=== PATIENT | male | born 1995 | race Two or more races ===

== ENCOUNTER 2024-03-05 04:44 | Emergency (ER) | payer MEDICAID, OTHER ==
[~2024-03-05] VITALS: Ht 177.8 cm; Wt 86.5 kg
[2024-03-05] MEDS ORDERED: NAP500T PO (05:30)
--- NOTE | 2024-03-05 05:35 | ED.PDOC ---
Musculoskeletal HPI Comments 28 year old male presents to ER with complaints of left hip pain x 5 months. Patient states he has been experiencing left hip pain x 5 months that got worse x 2 days prompting him to come to ER for further evaluation. He rates his current pain a 10/10 to left hip with radiation towards left groin. Notes he has been taking ibuprofen for his pain with slight relief and states he does have history of left hip fracture 1.5 years ago. Patient presents to ER in wheelchair and states he is able to bear minimum weight on left leg due to left hip pain. Reports he does have numbness/tingling to left hip and did have a recent left hip x-ray done at a local hospital that showed no acute findings. Denies fever, body aches, chills, night sweats, skin changes, recent falls/trauma, abdominal/pelvic pain, back pain, shortness of breath, changes in urination/bm or any further symptoms/complaints Chief Complaint: Lower Extremity Time Seen by MD: 04:51 Primary Care Provider: UNKNOWN Reviewed Notes: Nurses Notes, Medications, Allergies Allergies: Coded Allergies: NO KNOWN ALLERGIES (Unverified , 03/05/24) Home Meds Active Scripts Naproxen (NAPROSYN TABLET) 500 Mg Tb, 1 TAB PO BID PRN, #30 TAB 0 Refills Prov:BRANDON ASTORGA 03/05/24 Information Source: Patient Past Medical History PAST MEDICAL HISTORY: Asthma Past Medical History (Other): Left hip fracture Surgical History: Appendectomy Family History Family History: Unknown Social History Smoker: Non-Smoker Alcohol: Denies ETOH Use Drugs: Denies Drug Use Lives In: Home Constitutional: denies: chills, diaphoresis, fatigue, fever, malaise, sweats, weakness, others EENTM: denies: blurred vision, double vision, ear bleeding, ear discharge, ear drainage, ear pain, ear ringing, eye pain, eye redness, hearing loss, mouth pain, mouth swelling, nasal discharge, nose bleeding, nose congestion, nose pain, photophobia, tearing, throat pain, throat swelling, voice changes, others Respiratory: denies: cough, hemoptysis, orthopnea, SOB at rest, shortness of breath, SOB with excertion, stridor, wheezing, others Cardiovascular: denies: chest pain, dizzy spells, diaphoresis, Dyspnea on exertion, edema, irregular heart beat, left arm pain, lightheadedness, palpitations, PND, syncope, others Gastrointestinal: denies: abdomen distended, abdominal pain, blood streaked bowels, constipated, diarrhea, dysphagia, difficulty swallowing, hematemesis, melena, nausea, poor appetite, poor fluid intake, rectal bleeding, rectal pain, vomiting, others Genitourinary: denies: burning, dysuria, flank pain, frequency, hematuria, incontinence, penile discharge, penile sore, pain, testicle pain, testicle swelling, urgency, others Neurological: reports: others (As stated in HPI) Musculoskeletal: reports: others (As stated in HPI) Integumetry: denies: bruises, change in color, change in hair/nails, dryness, laceration, lesions, lumps, rash, wounds, others Allergic/Immunocompromised: denies: Difficulty Healing, Frequent Infections, Hives, Itching, others Hematologic/Lymphatic: denies: anemia, blood clots, easy bleeding, easy bruising, swollen glands, others Endocrine: denies: excessive hunger, excessive sweating, excessive thirst, excessive urination, flushing, intolerance to cold, intolerance to heat, unexplained weight gain, unexplained weight loss, others Psychiatric: denies: anxiety, bipolar disorder, depression, hopeless, panic disorder, schizophrenia, sleepless, suicidal, others Physical Exam General Appearance: No Apparent Distress HEENT: PERRL/EOMI Neck: Full Range of Motion, Non-Tender, Normal Respiratory: Chest Non-Tender, Lungs Clear, No Accessory Muscle Use, No Respiratory Distress, Normal Breath Sounds Cardiovascular: No Murmur, No Gallop, Regular Rate/Rhythm Breast Exam: Deferred Gastrointestinal: Non Tender, No Pulsatile Mass, Soft Genitalia: Deferred Pelvic: Deferred Rectal: Deferred Extremities: No calf tenderness, Normal capillary refill Musculoskeletal : Extremity Location: Hip (Slight TTP to left hip and left groin noted. No skin changes appreciated. No internal rotation/shortening to bilateral legs noted. Pulses intact. Patient favors right leg on ambulation due to pain localized to left hip/left groin) Neurologic: Alert, singing messenger II-XII nml as Tested, No Motor Deficits, Normal Affect, Normal Mood, No Sensory Deficits Cerebellar Function: Normal Reflexes: Normal Skin: Dry, Normal Color, Warm Peripheral Pulses: 2+ femoral (R), 2+ femoral (L), 2+ dorsalis pedis (R), 2+ dorsalis pedis (L) Lymphatic: No Adenopathy Was a procedure done? Was a procedure done?: No Sedation Sedation?: No Differential Diagnosis EXT Differential Diagnosis: Fracture, Dislocation, Neurovascular injury X-Ray, Labs, Meds, VS Vital Signs Date Time Temp Pulse Resp B/P (MAP) Pulse Ox O2 Delivery O2 Flow Rate FiO2 03/05/24 07:40 98.6 82 18 115/88 (97) 100 98.6 03/05/24 07:30 100 Room Air* 0 21 03/05/24 05:19 98.6 82 18 115/88 (97) 100 PATIENT: BIB SEGURA ACCT: [id number] UNIT: [id number] : 1995 LOC: ER ROOM / BED: / AGE / SEX: 28 / M ADM STATUS: REG ER SERVICE 6 ORDERING PHYSICIAN: BRANDON ASTORGA PROCEDURE(s): LHIP - L HIP COMPLETE XRAY REASON: left hip pain ORDER NUMBER(s): [id number], ACCESSION NUMBER(s): [id number] PROCEDURE: Left hip radiographs. INDICATION: left hip pain TECHNIQUE: Frontal and frogleg lateral views of the left hip were obtained. COMPARISON: None FINDINGS: There is no evidence of fracture or dislocation. Left hip joint space narrowing and osteophyte formation. Soft tissues are unremarkable. Right hip venus nt space is maintained. Calcification overlying the right femur consistent with calcific tendinitis. IMPRESSION: 1. No fracture or dislocation. 2. Left hip osteoarthritis. 3. Right hip calcific tendinitis. ATED BY: SUDHAKAR ELLSWORTH MD DICTATED DATE/TIME: 03/05/24635 SIGNED BY: SUDHAKAR ELLSWORTH MD SIGNED DATE/TIME: 03/05/24635 CC: Toradol 60 mg IM ordered Patient requested crutches to assist with ambulation. Crutches ordered, patient educated on proper use and advised to use at all times Patient neurovascularly intact Left hip x-ray reviewed Patient has chronic left hip pain and discussed with patient that he will likely benefit from MRI of left hip for further evaluation of symptoms Advised to f/u with PCP and orthopedics in 1-2 days Patient verbalized understanding and agreeable with current plan of care Advised to return to ER immediately if symptoms worsen Images Reviewed?: Images reviewed and evaluated by me (No acute findings) Time of 1ST Reevaluation: 05:02 Reevaluation 1ST: N/A Patient Education/Counseling: Diagnosis, Treatment, Prognosis, Need For Follow Up Family Education/Counseling: No Family Present Departure 1 Departure Time of Disposition: 05:22 Impression: Primary Impression: Chronic left hip pain Additional Impression: Arthritis of left hip Disposition: 01 HOME / SELF CARE / HOMELESS Condition: Stable e-Prescriptions Naproxen (NAPROSYN TABLET) 500 Mg Tb 1 TAB PO BID PRN, #30 TAB 0 Refills Prov: BRANDON ASTORGA 03/05/24 Discharged With: Significant Other Critical Care Note Critical Care Time?: No Stability Stability form required: No Heart Score Heart Score: Heart Score Response (Comments) Value History N/A 0 EKG N/A 0 Age N/A 0 Risk Factors N/A 0 Troponin N/A 0 Total 0 BRANDON ASTORGA Mar 05, 2024 05:35
--- NOTE | 2024-03-05 06:38 | DVH ---
PROCEDURE: Left hip radiographs. INDICATION: left hip pain TECHNIQUE: Frontal and frogleg lateral views of the left hip were obtained. COMPARISON: None FINDINGS: There is no evidence of fracture or dislocation. Left hip joint space narrowing and osteop hyte formation. Soft tissues are unremarkable. Right hip joint space is maintained. Calcification ove rlying the right femur consistent with calcific tendinitis. IMPRESSION: 1. No fracture or dislocation. 2. Left hip osteoarthritis. 3. Right hip calcific tendinitis.
[2024-03-05 07:30] VITALS: O2SAT 100
[2024-03-05] MEDS: KETOROLAC TROMETH 60MG/2ML VIAL IM ONE (07:36)
[2024-03-05 07:40] VITALS: BP 115/88; PULSE 82; RESP 18; TEMP 98.6; O2SAT 100
== END 2024-03-05 08:01 | disposition home or self-care (01) ==
LOC: ER 04:44
DX: G89.29 Other chronic pain (principal); M25.552 Pain in left hip; M16.12 Unilateral primary osteoarthritis, left hip; J45.909 Unspecified asthma, uncomplicated; Z90.49 Acquired absence of other specified parts of digestive tract
CPT/HCPCS: 73502; 96372; 99283; J1885